=== PATIENT | male | born 1965 | race Hispanic/Latino ===

== ENCOUNTER 2020-03-28 20:01 | Inpatient (IN) | payer SELFPAY ==
[2020-03-28] MEDS ORDERED: ALBUTEROL INHALER 60 PUFF/8 GM IH ONE (20:34)
[2020-03-28] MEDS ORDERED: dexAMETHasone 10 MG/ML VIAL ONE (20:34)
[2020-03-28] MEDS ORDERED: IBUPROFEN 400 MG TAB ONE (20:35)
[2020-03-28 20:54] LABS: Basophils % 0.4 % (0-1.3); Hematocrit 39.8 % (39.6-49.0); Lymphocytes % 8.9 % (15.3-44.8); MPV 8.1 fL (7.6-11.3); RBC Red Blood Cell Count 4.38 M/uL (4.33-5.43)
[2020-03-28 21:04] LABS: Protime INR 1.13
[2020-03-28 21:13] LABS: ALT/SGPT 43 U/L (12-78); AST/SGOT 41 U/L (15-37); Albumin 3.1 g/dL (3.4-5.0); Alkaline Phosphatase 64 U/L (45-117); BUN Blood Urea Nitrogen 11 mg/dL (7-18); Bicarbonate 24 mmol/L (21-32); Bilirubin Direct 0.1 mg/dL (0-0.2); Bilirubin Total 0.5 mg/dL (0.2-1.0); Glucose Level 142 mg/dL (74-106); Magnesium 2.3 mg/dL (1.8-2.4); NT PRO-BNP 109 pg/mL (<125); Potassium 3.6 mmol/L (3.5-5.1); Protein, Total 7.5 g/dL (6.4-8.2); Sodium Level 137 mmol/L (136-145); Troponin (Emerg Dept Use Only) < 0.02 ng/mL (0.0-0.045)
--- NOTE | 2020-03-28 21:23 | RAD REPORT ---
EXAM DESCRIPTION: RAD - Chest Single View - 03/28/2020 8:57 pm CLINICAL HISTORY: SOB;Cough Chest pain. COMPARISON: No comparisons FINDINGS: Portable technique limits examination quality. Moderate bilateral interstitial lung opacities are present notable with viral pneumonitis/ bronchitis . The heart is upper limit normal in size. No displaced fractures. IMPRESSION: Moderate viral pneumonitis/ bronchitis pattern.
[2020-03-28 22:48] LABS: Blood Morphology Comment NOT SEEN (NOT SEEN); Platelet Estimate ADEQ
--- NOTE | 2020-03-28 23:07 | ER ---
Nurse's Notes [facility] Name: Keyur Hewitt Age: 54 yrs Sex: Male : 1965 Arrival Date: 03/28/2020 Time: 20:05 Bed 14 Private MD: Diagnosis: COVID Pneumonia;Hypoxia Presentation: 03/28 20:05 Chief complaint: EMS states: complaining of difficulty of breathing and fever. covid rr5 swabbed done last 03/25/20,yesterday got the result positive. 20:05 Coronavirus screen: Client presents with at least one sign or symptom that may indicate rr5 coronavirus-19. Standard/surgical mask placed on the client. Provider contacted for isolation considerations. Client reports previous positive COVID test result. Date of collection: March 25, 2020. Ebola Screen: Patient negative for fever greater than or equal to 101.5 degrees Fahrenheit, and additional compatible Ebola Virus Disease symptoms Patient denies exposure to infectious person. Patient denies travel to an Ebola-affected area in the 21 days before illness onset. Initial Sepsis Screen: Does the patient meet any 2 criteria? Temp <36.0*C (96.8*F)) or > 38.3*C (100.9*F). Does the patient have a suspected source of infection? Yes: Productive cough/pneumonia. Risk Assessment: Do you want to hurt yourself or someone else? Patient reports no desire to harm self or others. Onset of symptoms was March 28, 2020. 20:05 Method Of Arrival: EMS: [facility] rr5 20:05 Acuity: SHEFALI 3 rr5 20:05 Care prior to arrival: Oxygen administered. via nasal cannula, 4 liters, Oxygen on room rr5 air 90%. Triage Assessment: 20:05 Respiratory: Onset: The symptoms/episode began/occurred gradually, the patient has mild rr5 shortness of breath. Historical: - Allergies: 20:05 No Known Allergies; rr5 - Home Meds: 20:05 None [Active]; rr5 - PMHx: 20:05 covid; rr5 - PSHx: 20:05 None; rr5 - Immunization history:: Adult Immunizations up to date. - Social history:: Smoking status: unknown Patient/guardian denies using alcohol, street drugs. Screenin:20 Abuse screen: Denies threats or abuse. Denies injuries from another. Nutritional rr5 screening: No deficits noted. Tuberculosis screening: No symptoms or risk factors identified. Fall Risk IV access (20 points). Total Mejia Fall Scale indicates No Risk (0-24 pts). Assessment: 20:05 General: Appears in no apparent distress. comfortable, Behavior is calm, cooperative, rr5 appropriate for age, Reports fever for. 20:05 Pain: Denies pain. Neuro: Level of Consciousness is awake, alert, obeys commands, rr5 Oriented to person, place, time, situation. Cardiovascular: Capillary refill < 3 seconds Patient's skin is warm and dry. Rhythm is sinus tachycardia. Respiratory: Reports breathing difficulty Airway is patent Respiratory effort is even, unlabored, Respiratory pattern is regular, symmetrical, Breath sounds are clear. GI: No signs and/or symptoms were reported involving the gastrointestinal system. : No signs and/or symptoms were reported regarding the genitourinary system. EENT: No signs and/or symptoms were reported regarding the EENT system. Derm: Skin is intact, is healthy with good turgor, Skin temperature is warm. Musculoskeletal: Circulation, motion, and sensation intact. Capillary refill < 3 seconds. 21:30 Reassessment: Patient appears in no apparent distress at this time. Patient is alert, rr5 oriented x 3, equal unlabored respirations, skin warm/dry/pink. awaiting for results. 22:30 Reassessment: Patient appears in no apparent distress at this time. Patient is alert, rr5 oriented x 3, equal unlabored respirations, skin warm/dry/pink. for admission hospitalist at bedside Patient states feeling better. Patient states symptoms have improved. 23:00 Reassessment: Patient appears in no apparent distress at this time. Patient is alert, rr5 oriented x 3, equal unlabored respirations, skin warm/dry/pink. chatting with his line helper no complaint made. 23:30 Reassessment: Patient appears in no apparent distress at this time. Patient is alert, rr5 oriented x 3, equal unlabored respirations, skin warm/dry/pink. resting eyes closed breathing spontaneously with oxygen support at 4 liter via nasal cannula. Vital Signs: 20:05 BP 133 / 77; Pulse 95; Resp 19; Temp 102.8; Pulse Ox 97% on 4 lpm NC; Weight 111.13 kg; rr5 Height 5 ft. 5 in. (165.10 cm); Pain 0/10; 20:51 BP 123 / 84; Pulse 107; Resp 27; Pulse Ox 98% on 4 lpm NC; rr5 21:30 BP 126 / 89; Pulse 85; Resp 25; Pulse Ox 99% on 4 lpm NC; rr5 22:41 BP 121 / 75; Pulse 79; Resp 16; Temp 99.5; Pulse Ox 99% on 4 lpm NC; rr5 23:51 BP 122 / 81; Pulse 77; Resp 22; Pulse Ox 99% on 4 lpm NC; rr5 23:51 Temp 98.5; rr5 20:05 Body Mass Index 40.77 (111.13 kg, 165.10 cm) rr5 ED Course: 20:05 Patient arrived in ED. cf2 20:05 Florentin Chand MD is Attending Physician. mh7 20:05 Arm band placed on right wrist. rr5 20:14 Lucas Moralez RN is Primary Nurse. rr5 20:16 Triage completed. rr5 20:30 Patient has correct armband on for positive identification. Bed in low position. Call rr5 light in reach. mechanotherapist on. Pulse ox on. NIBP on. 20:40 Inserted saline lock: 20 gauge in right forearm, using aseptic technique. Blood rr5 collected. Accessed. 20:40 First set of blood cultures drawn by me. rr5 20:57 XRAY Chest (1 view) In Process Unspecified. EDMS 23:06 Gregory Hernandez is Hospitalizing Provider. 7 23:52 No provider procedures requiring assistance completed. Patient admitted, IV remains in rr5 place. intact, No redness/swelling at site. Administered Medications: 20:30 Drug: Albuterol HFA Inhaler 2 puffs Route: Inhalation; rr5 21:30 Follow up: Response: No adverse reaction rr5 20:40 Drug: Decadron - Dexamethasone 6 mg Route: IVP; Site: right forearm; rr5 21:40 Follow up: Response: No adverse reaction rr5 20:45 Drug: Ibuprofen 800 mg Route: PO; rr5 22:00 Follow up: Response: No adverse reaction rr5 Outcome: 23:07 Decision to Hospitalize by Provider. mh7 23:52 Admitted to ICU accompanied by tech, via stretcher, room 8, with oxygen, with chart, rr5 Report called to jonathon 23:52 Condition: stable 23:52 Instructed on the need for admit. 03/29 00:28 Patient left the ED. rr5 Signatures: Dispatcher [employer] Lucas Mcelroy, RN RN rr5 Cesar Pro cf2 Florentin Chand MD MD mh7 Corrections: (The following items were deleted from the chart) 03/28 22:42 22:41 BP 121 / 75; Pulse 79bpm; Resp 16bpm; Pulse Ox 99%; Temp 99.5F; rr5 rr5 23:55 20:05 Chief complaint: EMS states: complaining of difficulty of breathing and fever. he rr5 came here last 03/25/20 tested positive for covid. rr5
--- NOTE | 2020-03-28 23:07 | EDPHYS ---
Physician Documentation [facility] Name: Keyur Hewitt Age: 54 yrs Sex: Male : 1965 Arrival Date: 03/28/2020 Time: 20:05 Bed 14 Private MD: ED Physician Florentin Chand HPI: 03/28 20:29 This 54 yrs old Male presents to ER via EMS with complaints of Breathing Difficulty. mh7 20:29 The patient has shortness of breath at rest. mh7 20:30 Onset: The symptoms/episode began/occurred today. Duration: The symptoms are mh7 continuous, and are unchanged since they started. The patient's shortness of breath is aggravated by coughing, light activity, is alleviated by nothing. Associated signs and symptoms: Pertinent positives: non-productive cough, fever, Pertinent negatives: chest pain, productive cough, diaphoresis, dizziness, hemoptysis, loss of consciousness, nausea, numbness in extremities, visual changes, vomiting. Severity of symptoms: At their worst the symptoms were moderate today, in the emergency department the symptoms have improved moderately. Historical: - Allergies: 20:05 No Known Allergies; rr5 - Home Meds: 20:05 None [Active]; rr5 - PMHx: 20:05 covid; rr5 - PSHx: 20:05 None; rr5 - Immunization history:: Adult Immunizations up to date. - Social history:: Smoking status: unknown Patient/guardian denies using alcohol, street drugs. ROS: 20:30 Eyes: Negative for injury, pain, redness, and discharge, ENT: Negative for injury, mh7 pain, and discharge, Neck: Negative for injury, pain, and swelling, Cardiovascular: Negative for chest pain, palpitations, and edema, Abdomen/GI: Negative for abdominal pain, nausea, vomiting, diarrhea, and constipation, Back: Negative for injury and pain, : Negative for injury, bleeding, discharge, and swelling, MS/Extremity: Negative for injury and deformity, Skin: Negative for injury, rash, and discoloration, Neuro: Negative for headache, weakness, numbness, tingling, and seizure, Psych: Negative for depression, anxiety, suicide ideation, homicidal ideation, and hallucinations, Allergy/Immunology: Negative for hives, rash, and allergies, Endocrine: Negative for neck swelling, polydipsia, polyuria, polyphagia, and marked weight changes, Hematologic/Lymphatic: Negative for swollen nodes, abnormal bleeding, and unusual bruising. Exam: 20:30 Head/Face: Normocephalic, atraumatic. Eyes: Pupils equal round and reactive to light, mh7 extra-ocular motions intact. Lids and lashes normal. Conjunctiva and sclera are non-icteric and not injected. Cornea within normal limits. Periorbital areas with no swelling, redness, or edema. Neck: Trachea midline, no thyromegaly or masses palpated, and no cervical lymphadenopathy. Supple, full range of motion without nuchal rigidity, or vertebral point tenderness. No Meningismus. Chest/axilla: Normal chest wall appearance and motion. Nontender with no deformity. No lesions are appreciated. Cardiovascular: Regular rate and rhythm with a normal S1 and S2. No gallops, murmurs, or rubs. Normal PMI, no JVD. No pulse deficits. 20:30 Abdomen/GI: Soft, non-tender, with normal bowel sounds. No distension or tympany. No guarding or rebound. No evidence of tenderness throughout. Back: No spinal tenderness. No costovertebral tenderness. Full range of motion. Skin: Warm, dry with normal turgor. Normal color with no rashes, no lesions, and no evidence of cellulitis. MS/ Extremity: Pulses equal, no cyanosis. Neurovascular intact. Full, normal range of motion. Neuro: Awake and alert, GCS 15, oriented to person, place, time, and situation. Cranial nerves II-XII grossly intact. Motor strength 5/5 in all extremities. Sensory grossly intact. Cerebellar exam normal. Normal gait. Psych: Awake, alert, with orientation to person, place and time. Behavior, mood, and affect are within normal limits. 20:30 Constitutional: The patient appears in no acute distress, alert, awake, uncomfortable. 20:30 Respiratory: the patient does not display signs of respiratory distress, Respirations: normal, Breath sounds: rhonchi, that are mild, are scattered, Respiratory rate: 19 Vital Signs: 20:05 BP 133 / 77; Pulse 95; Resp 19; Temp 102.8; Pulse Ox 97% on 4 lpm NC; Weight 111.13 kg; rr5 Height 5 ft. 5 in. (165.10 cm); Pain 0/10; 20:51 BP 123 / 84; Pulse 107; Resp 27; Pulse Ox 98% on 4 lpm NC; rr5 21:30 BP 126 / 89; Pulse 85; Resp 25; Pulse Ox 99% on 4 lpm NC; rr5 22:41 BP 121 / 75; Pulse 79; Resp 16; Temp 99.5; Pulse Ox 99% on 4 lpm NC; rr5 23:51 BP 122 / 81; Pulse 77; Resp 22; Pulse Ox 99% on 4 lpm NC; rr5 23:51 Temp 98.5; rr5 20:05 Body Mass Index 40.77 (111.13 kg, 165.10 cm) rr5 MDM: 23:04 Differential diagnosis: Anemia Anxiety Reaction asthma, Bronchitis CHF exacerbation, 7 Chronic Obstructive Pulmonary Disease Myocardial Infarction pneumonia, Pneumothorax pulmonary edema, reactive airway disease, Sepsis. Data reviewed: vital signs, nurses notes, EMS record, lab test result(s), CBC, electrolytes, urinalysis, EKG, radiologic studies, plain films. Data interpreted: Pulse oximetry: on 4L(s) per nasal canula, is 97 %. Interpretation: acceptable. Counseling: I had a detailed discussion with the patient and/or guardian regarding: the historical points, exam findings, and any diagnostic results supporting the discharge/admit diagnosis, lab results, radiology results, the need for further work-up and treatment in the hospital. Response to treatment: the patient's symptoms have mildly improved after treatment. 23:07 Patient medically screened. [facility] 03/28 20:08 Order name: Basic Metabolic Panel [facility] 03/28 20:08 Order name: CBC with Diff; Complete Time: 23:03 [facility] 03/28 20:08 Order name: LFT's [facility] 03/28 20:08 Order name: Magnesium [facility] 03/28 20:08 Order name: NT PRO-BNP [facility] 03/28 20:08 Order name: PT-INR; Complete Time: 21:23 [facility] 03/28 20:08 Order name: Troponin (emerg Dept Use Only) [facility] 03/28 20:08 Order name: XRAY Chest (1 view); Complete Time: 22:25 [facility] 03/28 20:08 Order name: Lactate; Complete Time: 21:23 [facility] 03/28 20:08 Order name: Procalcitonin; Complete Time: 22:25 [facility] 03/28 20:08 Order name: Blood Culture Adult (2) [facility] 03/28 20:56 Order name: Manual Differential; Complete Time: 23:03 [facility] 03/28 23:17 Order name: CRP la1 03/29 00:14 Order name: C-Reactive Protein [facility] 03/28 20:08 Order name: EKG; Complete Time: 20:10 [facility] 03/28 20:08 Order name: Cardiac monitoring; Complete Time: 20:50 [facility] 03/28 20:08 Order name: EKG - Nurse/Tech; Complete Time: 20:50 [facility] 03/28 20:08 Order name: IV Saline Lock; Complete Time: 20:50 [facility] 03/28 20:08 Order name: Labs collected and sent; Complete Time: 20:50 [facility] 03/28 20:08 Order name: O2 Per Protocol; Complete Time: 20:50 [facility] 03/28 20:08 Order name: O2 Sat Monitoring; Complete Time: 20:50 [facility] Administered Medications: 20:30 Drug: Albuterol HFA Inhaler 2 puffs Route: Inhalation; rr5 21:30 Follow up: Response: No adverse reaction rr5 20:40 Drug: Decadron - Dexamethasone 6 mg Route: IVP; Site: right forearm; rr5 21:40 Follow up: Response: No adverse reaction rr5 20:45 Drug: Ibuprofen 800 mg Route: PO; rr5 22:00 Follow up: Response: No adverse reaction rr5 Disposition: 03/28/20 23:07 Hospitalization ordered by Gregory Hernandez for Inpatient Admission. Preliminary diagnosis are COVID Pneumonia, Hypoxia. - Bed requested for Intensive Care Unit. - Status is Inpatient Admission. rr5 - Condition is Stable. - Problem is new. - Symptoms have improved. Signatures: Dispatcher [employer] [facility] Mira Ramos RN RN dw Lucas Moralez RN RN rr5 Florentin Chand MD MD mh7 Corrections: (The following items were deleted from the chart) 23:11 23:07 Hospitalization Ordered by Gregory Hernandez for Inpatient Admission. Preliminary dw diagnosis is COVID Pneumonia; Hypoxia. Bed requested for Telemetry/MedSurg (Inpatient). Status is Inpatient Admission. Condition is Stable. Problem is new. Symptoms have improved. [facility] 03/29 00:28 03/28 23:11 03/28/2020 23:07 Hospitalization Ordered by Gregory Hernandez for Inpatient rr5 Admission. Preliminary diagnosis is COVID Pneumonia; Hypoxia. Bed requested for Intensive Care Unit. Status is Inpatient Admission. Condition is Stable. Problem is new. Symptoms have improved. dw
[2020-03-28] MEDS ORDERED: BENZONATATE 100 MG CAP PO PRN (23:45)
[2020-03-28] MEDS ORDERED: ONDANSETRON 4 MG/2 ML VIAL IV PRN (23:45)
[2020-03-28] MEDS ORDERED: HYDROCODONE/APAP 5/325 MG TAB PO PRN (23:45)
[2020-03-28] MEDS ORDERED: ACETAMINOPHEN 500 MG TAB PO PRN (23:45)
--- NOTE | 2020-03-29 00:19 | P.HP ---
Certification for Inpatient Patient admitted to: Observation With expected LOS: <2 Midnights Patient will require the following post-hospital care: None Practitioner: I am a practitioner with admitting privileges, knowledge of patient current condition, hospital course, and medical plan of care. Services: Services provided to patient in accordance with Admission requirements found in Title 42 Section 412.3 of the Code of Federal Regulations <ElidiaRubio wiley - Last Filed: 03/29/20 00:16> Patient History Date of Service: 03/29/20 Primary Care Provider: None Reason for admission: COVID pneumonia History of Present Illness: 54-year-old male with no significant past medical history presents emergency department for shortness of breath. Patient reports that he tested positive for Cerda virus on 03/25/2020 at [facility]. Patient reports increasing shortness of breath since then. Workup in the emergency department remarkable for mildly elevated white blood cell count of 11.5 with left shift, pro calcitonin 1.53. Ferritin and CRP levels pending. Initial troponin negative. Patient was mildly hypoxic around 89-90% on room air in the emergency department and was placed on oxygen. Chest x-ray shows moderate viral pneumonitis/bronchitis pattern. ED provider wishes to admit patient for further evaluation and management. When I saw the patient in the emergency department is awake, alert, oriented x3. Patient with mild tachypnea and shortness of breath. Does not appear septic at this time. Will be admitted under observation. 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 - Family History Family History: Reviewed- Non-Contributory - Social History Smoking Status: Never smoker Alcohol use: Yes CD- Drugs: No Caffeine use: No Place of Residence: Home <Rubio Salvador - Last Filed: 03/29/20 00:16> Date of Service: 03/29/20 <brooke ceron - Last Filed: 03/29/20 18:07> Allergies No Known Allergies Allergy (Verified 03/28/20 23:45) Review of Systems 10-point ROS is otherwise unremarkable Respiratory: Cough, Shortness of Breath <Rubio Salvador - Last Filed: 03/29/20 00:16> Physical Examination - Physical Exam General: Alert, In no apparent distress HEENT: Atraumatic, PERRLA, Mucous membr. moist/pink Neck: Supple, 2+ carotid pulse no bruit, No LAD Respiratory: Clear to auscultation bilaterally, Diminished Cardiovascular: Regular rate/rhythm, Normal S1 S2 Capillary refill: <2 Seconds Gastrointestinal: Normal bowel sounds, No tenderness Musculoskeletal: No tenderness Integumentary: No rashes Neurological: Normal speech, Normal strength at 5/5 x4 extr, Normal tone, Normal affect - Studies Laboratory Data (last 24 hrs) 03/28/20 20:40: PT 13.3 H, INR 1.13 03/28/20 20:40: WBC 11.5 H, Hgb 14.0, Hct 39.8, Plt Count 210 03/28/20 20:40: Sodium 137, Potassium 3.6, BUN 11, Creatinine 0.94, Glucose 142 H, Magnesium 2.3, Total Bilirubin 0.5, AST 41 H, ALT 43, Alkaline Phosphatase 64 <Rubio Salvador - Last Filed: 03/29/20 00:16> - Studies Laboratory Data (last 24 hrs) 03/28/20 20:40: PT 13.3 H, INR 1.13 03/28/20 20:40: WBC 11.5 H, Hgb 14.0, Hct 39.8, Plt Count 210 03/28/20 20:40: Sodium 137, Potassium 3.6, BUN 11, Creatinine 0.94, Glucose 142 H, Magnesium 2.3, Total Bilirubin 0.5, AST 41 H, ALT 43, Alkaline Phosphatase 64 <brooke ceron - Last Filed: 03/29/20 18:07> Assessment and Plan - Plan Assessment COVID pneumonia with hypoxia: Plan COVID pneumonia with hypoxia: Continue with IV steroids, oral supplements. Daily room air saturations, room air saturations for home O2. Respiratory therapy consult in place. DVT prophylaxis Lovenox. Consult pulmonology in place. Monitor on telemetry. Discharge Plan: Home Plan to discharge in: 24 Hours - Advance Directives Does patient have a Living Will: No Does patient have a Durable POA for Healthcare: No - Code Status/Comfort Care Code Status Assessed: Yes (Full code) Critical Care: No Time Spent Managing Pts Care (In Minutes): 55 <Rubio Salvador - Last Filed: 03/29/20 00:16> - Problems (Diagnosis) (1) Acute respiratory failure with hypoxia Status: Acute Physician Review: Patient Assessed, Agree with Above Assessment and Plan Physician Review Additional Text: COVID Pneumonia Acute respiratory failure with hypoxia. Plan: IV steroid. Assess home oxygen qualification. <brooke ceron - Last Filed: 03/29/20 18:07>
[2020-03-29] MEDS: METHYLPREDNISOLONE 40 MG INJ IV SCH ×2 (01:10→09:17)
[2020-03-29 01:23] VITALS: BMI 32.2
[2020-03-29 05:06] LABS: Absolute Lymphocytes (CBC) 0.8 K/uL (0.7-4.9); Basophils % 0.1 % (0-1.3); Hematocrit 39.7 % (39.6-49.0); Lymphocytes % 7.8 % (15.3-44.8); MPV 8.4 fL (7.6-11.3)
[2020-03-29 05:34] LABS: Ferritin 1588.4 ng/mL (26-388); Magnesium 2.6 mg/dL (1.8-2.4); Potassium 4.3 mmol/L (3.5-5.1)
--- NOTE | 2020-03-29 08:36 | P.CNS ---
Date of Consult: 03/29/20 Primary Care Provider: None Chief Complaint: COVID pneumonia History of Present Illness: Patient is 54 years of age no significant past medical history admitted with shortness of breath he was tested positive for jama virus he is currently doing well chest x-ray shows some mild interstitial changes he was also hypoxic Allergies No Known Allergies Allergy (Verified 03/28/20 23:45) Home Medications: Acetaminophen [Tylenol] 325 mg PO Q8HP PRN 03/29/20 Ibuprofen 200 mg PO Q8HP PRN 03/29/20 Ibuprofen [Advil] 200 mg PO Q8HP PRN 03/29/20 - Past Medical/Surgical History Diabetic: No -: None -: None Psychosocial/ Personal History: 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 - Social History Smoking Status: Unknown if ever smoked Alcohol use: Yes CD- Drugs: No Caffeine use: No Place of Residence: Home Review of Systems 10-point ROS is otherwise unremarkable Physical Examination Temp Pulse Resp BP Pulse Ox 96.9 F 52 21 H 112/77 100 03/29/20 04:00 03/29/20 04:00 03/29/20 04:00 03/29/20 04:00 03/29/20 04:00 General: Alert, Oriented x3 Respiratory: Clear to auscultation bilaterally Cardiovascular: No edema, Regular rate/rhythm Laboratory Data (last 24 hrs) 03/28/20 20:40: PT 13.3 H, INR 1.13 03/28/20 20:40: WBC 11.5 H, Hgb 14.0, Hct 39.8, Plt Count 210 03/28/20 20:40: Sodium 137, Potassium 3.6, BUN 11, Creatinine 0.94, Glucose 142 H, Magnesium 2.3, Total Bilirubin 0.5, AST 41 H, ALT 43, Alkaline Phosphatase 64 - Problems (1) Pneumonia due to human coronavirus Current Visit: Yes Status: Acute Plan: Patient is 54 years of age admitted with mild jama virus pneumonia is currently doing well labs reviewed CRP is elevated chest x-ray mild interstitial changes possible discharge today or tomorrow on prednisone for with me in 2 weeks currently doing well stable 100% on 4 L nasal cannula oxygen patient is on any home medications
[2020-03-29] MEDS ORDERED: ZINC SULFATE 220 MG CAP PO SCH (09:00)
[2020-03-29] MEDS ORDERED: VITAMIN D 1000 UNIT TAB PO SCH (09:00)
[2020-03-29] MEDS ORDERED: ENOXAPARIN 40 MG/0.4 ML SQ SCH (09:00)
[2020-03-29] MEDS ORDERED: INFLUENZA VACCINE (for 3y+) 0.5 ML DOSE IMVAC ONE (09:00)
[2020-03-29] MEDS: ASCORBIC ACID 500 MG TABLET PO SCH ×2 (09:16→13:40)
--- NOTE | 2020-03-29 10:06 | P.DS ---
Admission Date: 03/28/20 Discharge Date: 03/29/20 Primary Care Provider: None Disposition: ROUTINE DISCHARGE Discharge Condition: FAIR Reason for Admission: COVID pneumonia Consultations: Pulmonary-Dr. Castillo. - Problems (1) Acute respiratory failure with hypoxia Current Visit: Yes Status: Acute Brief History of Present Illness: 54-year-old gentleman with known past medical history presented to the emergency department with a complaint of progressive shortness of breath and cough. He was diagnosed with COVID 19 infection on March 25. Patient was mildly hypoxic in the ED. His oxygen saturation was reported to be 88% on room air. Chest x- ray demonstrated patchy infiltrate suggestive of COVID pneumonia. Patient was placed on oxygen, given IV dexamethasone and admitted for further management. Hospital Course: Patient admitted to the medical floor and put on IV steroid. He was maintained on 2 L of oxygen saturation with an SaO2 of 99%. His oxygen saturation is 96% with ambulation and does not qualify for home oxygen. Patient seen and evaluated by pulmonary-Dr. Castillo. He is clinically stable. He will be discharged to home with oral prednisone, vitamin-C and zinc supplementation. He is informed to return to the ED whenever he feels his respiratory condition has gotten worse and is short of breath at rest. Vital Signs/Physical Exam: Temp Pulse Resp BP Pulse Ox 96.9 F 52 21 H 112/77 100 03/29/20 04:00 03/29/20 04:00 03/29/20 04:00 03/29/20 04:00 03/29/20 04:00 General: Alert, In no apparent distress Neck: JVD not distended Respiratory: Normal air movement Cardiovascular: No edema, Regular rate/rhythm Gastrointestinal: Non-distended Musculoskeletal: No swelling Integumentary: No rashes Laboratory Data at Discharge: WBC 10.6 K/uL (4.3-10.9) 03/29/20 04:46 Hgb 13.7 g/dL (13.6-17.9) 03/29/20 04:46 Hct 39.7 % (39.6-49.0) 03/29/20 04:46 Plt Count 224 K/uL (152-406) 03/29/20 04:46 PT 13.3 SECONDS (9.5-12.5) H 03/28/20 20:40 INR 1.13 03/28/20 20:40 Sodium 139 mmol/L (136-145) 03/29/20 04:46 Potassium 4.3 mmol/L (3.5-5.1) 03/29/20 04:46 BUN 15 mg/dL (7-18) 03/29/20 04:46 Creatinine 1.04 mg/dL (0.55-1.3) 03/29/20 04:46 Glucose 203 mg/dL (74-106) H 03/29/20 04:46 Magnesium 2.6 mg/dL (1.8-2.4) H 03/29/20 04:46 Total Bilirubin 0.5 mg/dL (0.2-1.0) 03/28/20 20:40 AST 41 U/L (15-37) H 03/28/20 20:40 ALT 43 U/L (12-78) 03/28/20 20:40 Alkaline Phosphatase 64 U/L (45-117) 03/28/20 20:40 Home Medications: Acetaminophen [Tylenol] 325 mg PO Q8HP PRN 03/29/20 Ascorbic Acid [Vitamin C*] 500 mg PO TID #90 tablet 03/29/20 Benzonatate [Tessalon Perle*] 200 mg PO TID PRN #30 cap 03/29/20 Cholecalciferol (Vitamin D3) [Vitamin D 1000 Iu Tab*] 2,000 unit PO DAILY #30 tab 03/29/20 Ibuprofen 200 mg PO Q8HP PRN 03/29/20 Zinc Sulfate [Zinc Sulfate*] 220 mg PO DAILY #30 cap 03/29/20 predniSONE [Deltasone] 20 mg PO BID #60 tab 03/29/20 New Medications: predniSONE [Deltasone] 20 mg PO BID #60 tab Benzonatate [Tessalon Perle*] 200 mg PO TID PRN #30 cap PRN Reason: Cough Ascorbic Acid [Vitamin C*] 500 mg PO TID #90 tablet Cholecalciferol (Vitamin D3) [Vitamin D 1000 Iu Tab*] 2,000 unit PO DAILY #30 tab Zinc Sulfate [Zinc Sulfate*] 220 mg PO DAILY #30 cap Diet: Regular Activity: Ad romulo Followup: Galileo Castillo MD [ACTIVE - CAN ADMIT] - (within 2 weeks) Unknown,U [Primary Care Provider] - Time spent managing pt's care (in minutes): 28
[2020-03-29 12:14] VITALS: O2SAT 98
[2020-03-29 14:25] VITALS: BP 124/89; TEMP 98
== END 2020-03-29 13:48 | disposition home or self-care (01) | DRG 177 ==
LOC: ER 20:01 → ERHOLD 23:33 → OBSVTOIN 23:33 → 3RD-ICU 23:49
PROVIDERS: ADMIT Internal Medicine; ATTEND Internal Medicine
DX: U07.1 COVID-19 (principal); J12.89 Other viral pneumonia; J96.01 Acute respiratory failure with hypoxia; Z79.52 Long term (current) use of systemic steroids; Z79.899 Other long term (current) drug therapy
CPT/HCPCS: 36415; 71045; 80048; 80076; 82728; 83605; 83735; 83880; 84145; 84484; 85025; 85610; 86140; 87040; 93005; 96374; 99285; J1100; J1650; J2920